=== PATIENT | male | born 1985 | race Asian ===

== ENCOUNTER 2019-03-28 21:12 | Emergency (ER) | payer SELFPAY ==
--- NOTE | 2019-03-28 22:02 | Emergency Department Report ---
Blank Doc - Documentation Documentation: 33-year-old male that presents with n/v, abdominal pain and headache. This initial assessment/diagnostic orders/clinical plan/treatment(s) is/are subject to change based on patient's health status, clinical progression and re- assessment by fellow clinical providers in the ED. Further treatment and workup at subsequent clinical providers discretion. Patient/guardians urged not to elope from the ED as their condition may be serious if not clinically assessed and managed. Initial orders include: 1- Patient sent to [facility] for further evaluation and treatment 2- labs 3- UA
[2019-03-28 22:55] LABS: Basophils # (Auto) 0.1 K/mm3 (0.0-0.1); Basophils % (Auto) 0.7 % (0.0-1.8); Eosinophils # (Auto) 0.1 K/mm3 (0.0-0.4); Eosinophils % (Auto) 1.4 % (0.0-4.3); Hematocrit 46.9 % (35.5-45.6); Lymphocytes # (Auto) 2.7 K/mm3 (1.2-5.4); Lymphocytes % (Auto) 26.9 % (13.4-35.0); Mean Corpuscular HGB Conc 34 % (32-34); Mean Corpuscular Volume 88 fl (84-94); Monocytes # (Auto) 0.5 K/mm3 (0.0-0.8); Monocytes % (Auto) 5.1 % (0.0-7.3); Platelet Count 281 K/mm3 (140-440); Red Blood Count 5.35 M/mm3 (3.65-5.03); Red Cell Distribution Width 13.5 % (13.2-15.2)
[2019-03-28 23:18] LABS: Alanine Aminotransferase 28 units/L (7-56); Albumin 4.7 g/dL (3.9-5); BUN/Creatinine Ratio 19; Blood Urea Nitrogen 13 mg/dL (9-20); Hemolysis Index 9
[2019-03-28] MEDS ORDERED: ACETAMINOPHEN 500 MG TAB PO ONE (23:38)
[2019-03-28] MEDS ORDERED: diphenhydrAMINE 25 MG CAP PO ONE (23:38)
[2019-03-28] MEDS ORDERED: METOCLOPRAMIDE 10 MG TAB PO ONE (23:38)
--- NOTE | 2019-03-29 00:02 | XRay Report ---
CHEST 2 VIEWS INDICATION / CLINICAL INFORMATION: chest pain. COMPARISON: None available. FINDINGS: SUPPORT DEVICES: None. HEART / MEDIASTINUM: No significant abnormality. LUNGS / PLEURA: No significant pulmonary or pleural abnormality. .No pneumothorax. ADDITIONAL FINDINGS: No significant additional findings. IMPRESSION: 1. No acute findings. Signer Name: Catalino Gambino MD Signed: 03/28/2019 11:57 PM Workstation Name: [id number]
--- NOTE | 2019-03-29 01:23 | Emergency Department Report ---
ED General Adult HPI - General Chief complaint: Headache Stated complaint: CHEST PAIN, BACK PAIN Time Seen by Provider: 03/28/19 21:58 Source: patient Mode of arrival: Ambulatory Limitations: Language Barrier - History of Present Illness Initial comments: Mr. Queen is a 33-year-old male who presents for flulike symptoms cough body aches chills cough productive clear symptoms are exacerbating headache. Headache is 4/10 sharp frontal. Patient has history of same. Same location and intensity. Symptoms are exacerbated by activity. Symptoms are relieved by rest. There is no nausea vomiting. No fever noted in triage. Onset/Timin -: week(s) Location: head, chest, back (Renal), upper extremity, lower extremity (We did) Radiation: non-radiation Severity scale (0 -10): 6 Quality: aching Consistency: constant Improves with: rest Worsens with: movement Associated Symptoms: chest pain, cough, fever/chills, headaches, malaise. denies: shortness of breath Treatments Prior to Arrival: none - Related Data Previous Rx's Medication Instructions Recorded Last Taken Type Acetaminophen [Acetaminophen TAB] 1,000 mg PO Q6HR PRN #30 tablet 03/29/19 Unknown Rx Metoclopramide [Reglan] 10 mg PO Q6H PRN #30 tablet 03/29/19 Unknown Rx diphenhydrAMINE [Benadryl CAP] 25 mg PO Q6HR PRN #30 capsule 03/29/19 Unknown Rx Allergies Allergy/AdvReac Type Severity Reaction Status Date / Time No Known Allergies Allergy Unverified 03/28/19 21:34 ED Review of Systems ROS: Stated complaint: CHEST PAIN, BACK PAIN Other details as noted in HPI Constitutional: chills, fever Eyes: as per HPI ENT: ear pain, throat pain, congestion Respiratory: cough. denies: shortness of breath, wheezing Cardiovascular: chest pain (chest pain with cough ) Endocrine: no symptoms reported Gastrointestinal: denies: abdominal pain, nausea, vomiting, diarrhea Genitourinary: denies: urgency, dysuria Musculoskeletal: denies: back pain, joint swelling, arthralgia Skin: denies: rash, lesions Neurological: headache. denies: weakness, numbness, paresthesias, confusion, abnormal gait, vertigo Psychiatric: as per HPI Hematological/Lymphatic: denies: easy bleeding, easy bruising ED Past Medical Hx - Past Medical History Previous Medical History?: No - Surgical History Past Surgical History?: No - Social History Smoking Status: Never Smoker Substance Use Type: None - Medications Home Medications: Home Medications Medication Instructions Recorded Confirmed Last Taken Type Acetaminophen [Acetaminophen TAB] 1,000 mg PO Q6HR PRN #30 tablet 03/29/19 Unknown Rx Metoclopramide [Reglan] 10 mg PO Q6H PRN #30 tablet 03/29/19 Unknown Rx diphenhydrAMINE [Benadryl CAP] 25 mg PO Q6HR PRN #30 capsule 03/29/19 Unknown Rx ED Physical Exam - General Limitations: Language Barrier General appearance: alert, in no apparent distress - Head Head exam: Present: atraumatic, normocephalic - Eye Eye exam: Present: normal appearance, PERRL, EOMI Pupils: Present: normal accommodation - ENT ENT exam: Present: normal orophraynx, mucous membranes moist, TM's normal bilaterally, normal external ear exam - Neck Neck exam: Present: normal inspection, full ROM. Absent: tenderness, meningismus, lymphadenopathy, thyromegaly - Respiratory Respiratory exam: Present: normal lung sounds bilaterally, chest wall tenderness (right lateral chest wall ). Absent: respiratory distress, wheezes, rales, rhonchi, stridor - Cardiovascular Cardiovascular Exam: Present: regular rate, normal rhythm, normal heart sounds. Absent: systolic murmur, diastolic murmur, rubs, gallop - GI/Abdominal GI/Abdominal exam: Present: soft, normal bowel sounds. Absent: distended, tenderness, guarding, rebound, rigid, bruit, hernia - Rectal Rectal exam: Present: deferred - Extremities Exam Extremities exam: Present: normal inspection, full ROM. Absent: tenderness - Back Exam Back exam: Present: normal inspection, full ROM. Absent: tenderness, CVA tenderness (R), CVA tenderness (L) - Neurological Exam Neurological exam: Present: alert, oriented X3, CN II-XII intact, normal gait - Psychiatric Psychiatric exam: Present: normal affect, normal mood - Skin Skin exam: Present: warm, dry, intact, normal color. Absent: rash ED Course Vital Signs 03/28/19 03/28/19 21:29 23:55 Temperature 98.0 F Pulse Rate 63 Respiratory 18 16 Rate Blood Pressure 119/82 O2 Sat by Pulse 98 Oximetry ED Medical Decision Making - Lab Data Result diagrams: 03/28/19 22:23 03/28/19 22:23 Labs 03/28/19 03/28/19 22:23 22:23 WBC 10.1 RBC 5.35 H Hgb 16.0 H Hct 46.9 H MCV 88 MCH 30 MCHC 34 RDW 13.5 Plt Count 281 Lymph % (Auto) 26.9 [place] % (Auto) 5.1 Eos % (Auto) 1.4 Baso % (Auto) 0.7 Lymph # 2.7 [place] # 0.5 Eos # 0.1 Baso # 0.1 Seg Neutrophils % 65.9 Seg Neutrophils # 6.7 Sodium 143 Potassium 4.0 Chloride 100.8 Carbon Dioxide 27 Anion Gap 19 BUN 13 Creatinine 0.7 L Estimated GFR > 60 BUN/Creatinine Ratio 19 Glucose 102 H Calcium 10.0 Total Bilirubin 0.20 AST 21 ALT 28 Alkaline Phosphatase 78 Total Protein 7.9 Albumin 4.7 Albumin/Globulin Ratio 1.5 Lipase 37 - Radiology Data Radiology results: report reviewed, image reviewed FINDINGS: SUPPORT DEVICES: None. HEART / MEDIASTINUM: No significant abnormality. LUNGS / PLEURA: No significant pulmonary or pleural abnormality. .No pneumothorax. ADDITIONAL FINDINGS: No significant additional findings. IMPRESSION: 1. No acute findings. Signer Name: Catalino Gambino MD Signed: 03/28/2019 11:57 PM Workstation Name: [id number] Transcribed By: Dictated By: Catalino Gambino MD Electronically Authenticated By: Catalino Gambino MD Signed Date/Time: 03/28/192356 DD/ 56 TD/TT: - Medical Decision Making Headache is resolved. Chest x-ray is normal no infiltrate no opacities. Patient is tolerating p.o. intake there is no nausea vomiting. There is no fever. ENT with mild congestion. There is no visual changes no photophobia no nausea vomiting at this time plan: DC to home with Tylenol Benadryl Reglan for headache as needed, patient will continue to hydrate and follow-up with PCP. Patient will be DC'd home in stable condition at this time diagnosis viral syndrome, strep headache Critical care attestation.: If time is entered above; I have spent that time in minutes in the direct care of this critically ill patient, excluding procedure time. ED Disposition Clinical Impression: Headache Qualifiers: Headache type: unspecified Headache chronicity pattern: acute headache Intractability: not intractable Qualified Code(s): R51 - Headache Disposition: DC- TO HOME OR SELFCARE Is pt being admited?: No Does the pt Need Aspirin: No Condition: Stable Instructions: Viral Syndrome (ED), Acute Headache (ED) Prescriptions: Acetaminophen [Acetaminophen TAB] 1,000 mg PO Q6HR PRN #30 tablet PRN Reason: headache fever diphenhydrAMINE [Benadryl CAP] 25 mg PO Q6HR PRN #30 capsule PRN Reason: Headache Metoclopramide [Reglan] 10 mg PO Q6H PRN #30 tablet PRN Reason: headache Referrals: AFY LACEY [Primary Care Provider] - 3-5 Days Forms: Work/School Release Form(ED) Time of Disposition: 01:34
[2019-03-29 02:05] VITALS: BP 113/76
== END 2019-03-29 02:05 | disposition home or self-care (01) ==
LOC: ED 21:12
DX: R51 Headache (principal); Z79.899 Other long term (current) drug therapy
CPT/HCPCS: 36415; 71046; 80053; 83690; 85025